=== PATIENT | female | born 1960 | race Caucasian/White ===

== ENCOUNTER 2018-07-09 10:36 | Day surgery (SDC) | payer OTHER ==
--- NOTE | 2018-07-09 09:04 | HP ---
DATE OF SURGERY: 07/09/2018 HISTORY OF PRESENT ILLNESS: The patient is a 57 year-old for a while has had increasingly symptomatic skin lesion bothering her vision on her bilateral eye lids. As it is increasingly symptomatic bothering her vision, I feel it is medically necessary for removal. PAST MEDICAL HISTORY: Anxiety, depression. PAST SURGICAL HISTORY: Tubal in the past. MEDICATIONS: Effexor. ALLERGIES: NKDA. FAMILY HISTORY: Negative in regards to this problem. SOCIAL HISTORY: Half pack per day smoker, denies alcohol abuse. REVIEW OF SYSTEMS: Twelve systems reviewed. No chest pain or palpitations other systems negative or noncontributory as above and per preadmission questionnaire. PHYSICAL EXAMINATION: GENERAL: No acute distress. HEENT: Sclerae nonicteric. As far as her eyelid, she had bilateral exophytic lesions on her eyelids in need of excision. NECK: No JVD. CHEST: Equal excursion, nonlabored breathing. No audible wheeze. CVS: Regular rate and rhythm. ABDOMEN: Soft. No peritoneal signs. EXTREMITIES: No significant edema. NEURO: Alert, oriented, moving extremities symmetrically. No gross motor deficits noted. IMPRESSION: Increasingly symptomatic bilateral eyelid symptomatic lesions in need of excision. I feel she is a candidate. Risks and benefits explained in detail including but not limited to bleeding or infection, risk of wound dehiscence, risk of eyelid dysfunction. The fact that what we excise likely will not recur but she could get similar lesions adjacent to or elsewhere on her body. She understands the remote risk of cornea irritation given the location, general risk of anesthesia, deep venous thrombosis, pulmonary embolism, pneumonia but not limited to. She understands all the above but not limited to, will proceed with excisional biopsy of bilateral symptomatic enlarging eye lid lesion.
[2018-07-09] MEDS ORDERED: DIPRIVAN 200 MG/20 ML IV ONE (10:37)
[2018-07-09] MEDS ORDERED: Decadron 4 MG INJ IV ONE (10:37)
[2018-07-09] MEDS ORDERED: SUBLIMAZE 100 MCG/2 ML IV ONE (10:37)
[2018-07-09] MEDS ORDERED: Zofran 4 MG/2 ML VIAL IV ONE (10:37)
[2018-07-09] MEDS ORDERED: TORAdol 30 mg Injection IV ONE (10:37)
[2018-07-09] MEDS ORDERED: Lactated Ringers 1,000 ML IV ONE (10:44)
[2018-07-09] MEDS ORDERED: Lactated Ringers 1,000 ML IV SCH (11:00)
[2018-07-09] MEDS ORDERED: KEFZOL 1 GM ONE (13:01)
[2018-07-09 14:50] VITALS: BP 152/99; PULSE 90; O2SAT 92
--- NOTE | 2018-07-09 15:31 | OP ---
SURGERY DATE/TIME: 07/09/2018 1252 PREOPERATIVE DIAGNOSIS: Enlarging symptomatic eyelid lesions interfering with vision. POSTOPERATIVE DIAGNOSIS: Enlarging symptomatic eyelid lesions interfering with vision. PROCEDURES: 1) Excisional biopsy of left eyelid exophytic lesions x3 ranging from 2 mm to 3.5 mm with closure of 6-0 Prolene. 2) Excisional biopsy of left face lesions just below the eye x2 ranging in size around 2 mm closed with 6-0 Prolene. 3) Excisional biopsy of right eyelid lesions x5 ranging in size from 1.5 mm to 3 mm with closure with 6-0 Prolene. SURGEON: Dr. Davion Lance. ANESTHESIA: General. ESTIMATED BLOOD LOSS: Minimal. INDICATIONS: As noted above. Risks and benefits explained in detail and not limited to and consent obtained. The site was confirmed. DESCRIPTION OF PROCEDURE AND FINDINGS: The patient is taken to the operating room. General anesthesia induced. Her face and eyelids periorbital area prepped and draped in usual sterile fashion. After official time out and no disagreement with planned procedure, starting with the first at the right side. There were four exophytic lesions on the upper eyelid area that were excised sharply with a scalpel and closed with 6-0 Prolene. There was one lesion on the lower eyelid that was closed with excised with excisional biopsy with scalpel and closed with 6-0 Prolene and passed off. These ranged in size from 1.5 mm to 3 mm in size. Attention is then turned to the left eyelid. There was three on the eyelid itself measuring in size from 1.5 mm to 2 mm up to the largest 3 mm exophytic right on the eyelid/eye lash juncture area. These were excised sharply with a scalpel and closed with 6-0 Prolene. Good hemostasis noted. There were two exophytic enlarging darker colored lesions on the left face just below the bottom edge of the eyelid. These were excised sharply with a scalpel and closed with 6-0 Prolene. Good hemostasis noted. The patient tolerated the procedure well. She was transferred to the recovery room in stable condition. Findings discussed with the family out in the waiting area.
== END 2018-07-09 14:40 | disposition home or self-care (01) ==
LOC: SDC 10:36
PROVIDERS: ATTEND Surgery
DX: H02.9 Unspecified disorder of eyelid (principal); L98.8 Other specified disorders of the skin and subcutaneous tissue; R20.8 Other disturbances of skin sensation
CPT/HCPCS: 94250; J0690; J1100; J1885; J2405; J2704; J3010

== ENCOUNTER 2020-04-28 08:55 | Emergency (ER) | payer OTHER ==
[2020-04-28] MEDS ORDERED: TORAdol 30 mg Injection IM ONE (09:15)
[2020-04-28] MEDS ORDERED: TORAdol 30 mg Injection ONE (09:44)
--- NOTE | 2020-04-28 09:46 | ERPHSYRPT ---
- History of Present Illness Time Seen by Provider: 04/28/20 09:00 Source: patient Exam Limitations: no limitations Patient Subjective Stated Complaint: cough and L rib pain Triage Nursing Assessment: pt to ED c/o cough x 3 days and L rib pain onset 0430 this am when pt hear pop during coughing fit. rates 8/10 sharp pain that is worse when coughing and changing postion. pt states dry hacking "smokers" cough. smokes 0.5 ppd reported. lungs clear and equal bilaterally. heart sounds clear, A&Ox4. Physician History: Patient is a 59-year-old female presents to our ED with complaint of left side rib pain. Patient is a smoker. She smokes half pack per day. Patient has had a dry cough for 3 days. Early this morning patient coughed and felt a pop followed by localized pain at her left rib. Pain described as an ache that is localized. Pain worse with palpation and movement. Pain improved with rest. No associated nausea vomiting or diaphoresis. No chest pain. symptoms are mild to moderate in intensity. Patient voices no other complaints at this time. Timing/Duration: today Severity: mild Modifying Factors: Improves With: immobilization, movement, rest Associated Symptoms: cough, No nausea, No vomiting, No shortness of breath, No diaphoresis, No chills, No fever, No headaches, No rash Allergies/Adverse Reactions: No Known Drug Allergies Allergy (Verified 04/28/20 09:14) Home Medications: Venlafaxine HCl [Effexor] 3 mg PO HS 06/25/18 [History] Ergocalciferol (Vitamin D2) [Vitamin D2] 1,250 mcg PO WEEKLY 04/28/20 [History] Gabapentin 600 mg PO TID 04/28/20 [History] Losartan Potassium 50 mg [Cozaar 50 MG] 50 mg PO DAILY 04/28/20 [History] Metoprolol Succinate 50 mg PO DAILY 04/28/20 [History] Pravastatin Sodium 40 mg PO DAILY 04/28/20 [History] Ropinirole HCl 1 mg PO DAILY 04/28/20 [History] Venlafaxine HCl 37.5 mg [Effexor 37.5 mg] 37.5 mg PO DAILY 04/28/20 [History] Venlafaxine HCl [Venlafaxine HCl ER] 225 mg PO DAILY 04/28/20 [History] hydroCHLOROthiazide [Hydrochlorothiazide] 25 mg PO DAILY 04/28/20 [History] Hx Tetanus, Diphtheria Vaccination/Date Given: Yes Hx Influenza Vaccination/Date Given: Yes Hx Pneumococcal Vaccination/Date Given: No Immunizations Up to Date: Yes Travel Risk - International Travel Have you traveled outside of the country in past 3 weeks: No - Coronavirus Screening Are you exhibiting any of the following symptoms?: Yes Symptoms: Cough: New Onset Close contact with a COVID-19 positive Pt in past 14-21 Days: No - Review of Systems Constitutional: No Symptoms, No Fever, No Chills Eyes: No Symptoms Ears, Nose, & Throat: No Symptoms Respiratory: No Symptoms, No Cough, No Dyspnea Cardiac: No Symptoms, No Chest Pain, No Edema, No Syncope Abdominal/Gastrointestinal: No Symptoms, No Abdominal Pain, No Nausea, No Vomiting, No Diarrhea Genitourinary Symptoms: No Symptoms, No Dysuria Musculoskeletal: No Symptoms, No Back Pain, No Neck Pain Skin: No Symptoms, No Rash Neurological: No Symptoms, No Dizziness, No Focal Weakness, No Sensory Changes Psychological: No Symptoms Endocrine: No Symptoms Hematologic/Lymphatic: No Symptoms Immunological/Allergic: No Symptoms All Other Systems: Reviewed and Negative - Past Medical History Pertinent Past Medical History: Yes Neurological History: Peripheral Neuropathy ENT History: No Pertinent History Cardiac History: High Cholesterol, Hypertension Respiratory History: No Pertinent History Endocrine Medical History: Hypothyroidism Musculoskeletal History: Arthritis GI Medical History: No Pertinent History History: No Pertinent History Psycho-Social History: Depression Female Reproductive Disorders: No Pertinent History Other Medical History: LEFT ANKLE FX 2013. SX HX - TUBAL 30 YEARS AGO, 2004 EMBOLIZATION OF UTERUS, CARPAL TUNNEL RELEASE RIGHT 2010 - Past Surgical History Past Surgical History: Yes Neuro Surgical History: No Pertinent History Cardiac: No Pertinent History Respiratory: No Pertinent History Gastrointestinal: No Pertinent History Genitourinary: No Pertinent History Musculoskeletal: No Pertinent History Female Surgical History: Tubal Ligation, Other Other Surgical History: uterine procedure to tx heavy periods - Social History Smoking Status: Current every day smoker How long have you smoked: 25yrs Exposure to second hand smoke: Yes Drug Use: none Patient Lives Alone: No - Female History Hx Now: No - Nursing Vital Signs Nursing Vital Signs: Initial Vital Signs Temperature 97.6 F 04/28/20 08:58 Pulse Rate 73 04/28/20 08:58 Respiratory Rate 16 04/28/20 08:58 Blood Pressure 151/83 04/28/20 08:58 O2 Sat by Pulse Oximetry 98 04/28/20 08:58 Pain Scale Pain Intensity 8 - Physical Exam General Appearance: no apparent distress, alert Eye Exam: PERRL/EOMI, eyes nml inspection Ears, Nose, Throat Exam: normal ENT inspection, TMs normal, pharynx normal, moist mucous membranes Neck Exam: normal inspection, non-tender, supple, full range of motion Respiratory Exam: normal breath sounds, lungs clear, No respiratory distress Cardiovascular Exam: regular rate/rhythm, normal heart sounds, normal peripheral pulses, other (Tenderness to palpation at left rib. Overlying soft tissue intact. No signs of trauma.) Gastrointestinal/Abdomen Exam: soft, normal bowel sounds, No tenderness, No mass Back Exam: normal inspection, normal range of motion, No CVA tenderness, No jaswant tebral tenderness Extremity Exam: normal inspection, normal range of motion, pelvis stable Neurologic Exam: alert, oriented x 3, cooperative, normal mood/affect, nml cerebellar function, nml station & gait, sensation nml, No motor deficits Skin Exam: normal color, warm, dry, No rash Lymphatic Exam: No adenopathy SpO2 Interpretation: normal SpO2: 98 O2 Delivery: Room Air - Course EKG Interpreted by Me: RATE (66), Sinus Rhythm, NORMAL AXIS, NORMAL INTERVALS - Radiology Exams Chest X-ray Interpretation: Teleradiologist Report (Airspace infiltrates or other acute cardiopulmonary disease is seen. There is no evidence of pneumothorax.) Ribs X-ray Interpretation: Teleradiologist Report (Nonspecific minimal deformity of the distal and of the left ninth rib without a definite radiolucent fracture. Imaging possibilities include an occult nondisplaced fracture or deformity due to old healed trauma. Correlate with point tenderness. The remainder of the left rib cage appears unremarka) Ordered Tests: Active Orders 24 hr Category Date Time Status EKG-ER Only STAT Care 04/28/20 09:15 Active CHEST 1 VIEW (PORTABLE) Stat Exams 04/28/20 09:11 Completed RIBS UNILATERAL Stat Exams 04/28/20 09:11 Completed Medication Summary Discontinued Medications Generic Name Dose Route Start Last Admin Trade Name Freq PRN Reason Stop Dose Admin Ketorolac Tromethamine 30 mg 04/28/20 09:15 04/28/20 09:45 Toradol 30 Mg Injection IM 04/28/20 09:16 30 mg STAT ONE Administration Ketorolac Tromethamine Confirm 04/28/20 09:44 Toradol 30 Mg Injection Administered 04/28/20 09:45 Dose 30 mg .ROUTE .STK-MED ONE - Progress Progress: improved Progress Note: 04/28/20 10:12 X-ray suggestive of possible rib fracture particularly at rib #9. The images not definitive for fracture however there is tenderness at this location would suggest possible fracture. Patient reassessed. Pain improved. Vitals stable. EKG within normal limits. Chest x-ray essentially nonremarkable. Will discharge patient home with pain medication. Patient agrees to follow-up with her primary care doctor within 48 hours for reevaluation. Counseled pt/family regarding: diagnosis, need for follow-up, rad results, smoking cessation - Departure Departure Disposition: Home Clinical Impression: Cough, Rib fracture Condition: Stable Critical Care Time: No Referrals: ABBY TSANG MD [Primary Care Provider] - Additional Instructions: Discharge/Care Plan VIRE,ELIZABETH DE LEON was seen on 04/28/20 in the Emergency Room. The patient was counseled regarding Diagnosis,Lab results, Imaging studies, need for follow up and when to return to the Emergency Room. Prescriptions given: Discharge Note I have spoken with the patient and/or caregivers. I have explained the patient's condition, diagnosis and treatment plan based on the information available to me at this time. I have answered the patient's and/or caregiver's questions and addressed any concerns. The patient and/or caregivers have as good understanding of the patient's diagnosis, condition and treatment plan as can be expected at this point. The vital signs have been stable. The patient's condition is stable and appropriate for discharge from the emergency department. The patient will pursue further outpatient evaluation with the primary care physician or other designated or consulting physician as outlined in the discharge instructions. The patient and/or caregivers are agreeable to this plan of care and follow-up instructions have been explained in detail. The patient and/or caregivers have received these instruction. The patient/and or caregivers are aware that any significant change in condition or worsening of symptoms should prompt an immediate return to this or the closest emergency department or call 911. Prescriptions: Ketorolac Tromethamine [Toradol] 10 mg PO TID 5 Days #15 tablet
--- NOTE | 2020-04-28 09:58 | XRAY ---
Exam: Upright PA chest film from 04/28/2020. Comparison: Two-view chest film series from 08/16/2014. Indication: Cough, left mid axillary rib pain. Findings: The heart size and contour are normal. The luana and mediastinal structures appear unremarkable. There is average inflation of the lungs. No air space infiltrates, vascular congestion, pneumothorax, or pleural fluid is seen. No gross acute osseous process is seen. Slight convexity of the thoracolumbar junction toward the left is seen. Impression: 1. No air space infiltrates or other acute cardiopulmonary disease is seen. There is no evidence of pneumothorax.
[2020-04-28 10:02] VITALS: BP 133/87; PULSE 66
--- NOTE | 2020-04-28 10:04 | XRAY ---
Exam: 4 view left rib series from 04/28/2020. Comparison: None. Indication: No known injury, complains of left mid axillary rib pain, cough. Findings: 2 AP images and both oblique images of the left rib cage were obtained. A definite radiolucent fracture line is not seen. However, there appears to be minimal deformity of the distal anterior end of the left ninth rib on the coned-down AP image and LPO image. This could be due to an occult fracture injury or old healed trauma. Correlate clinically with point tenderness. The remainder of the left rib cage reveals no acute fracture or other focal bone lesion. No pneumothorax or pleural effusion is seen. Impression: 1. Nonspecific minimal deformity of the distal end of the left ninth rib without a definite radiolucent fracture line. Imaging possibilities include an occult nondisplaced fracture or deformity due to old healed trauma. Correlate with point tenderness. 2. The remainder of the left rib cage appears unremarkable.
[2020-04-28 10:06] VITALS: O2SAT 98
== END 2020-04-28 10:36 | disposition home or self-care (01) ==
LOC: ED 08:55
DX: R05 Cough (principal); S22.39XA Fracture of one rib, unspecified side, initial encounter for closed fracture; S27.9XXA Injury of unspecified intrathoracic organ, initial encounter; X58.XXXA Exposure to other specified factors, initial encounter; Y93.9 Activity, unspecified; Y92.9 Unspecified place or not applicable; Z72.0 Tobacco use; I10 Essential (primary) hypertension
CPT/HCPCS: 71045; 71100; 93005; 96372; 99284; J1885

== ENCOUNTER 2020-05-16 07:57 | Emergency (ER) | payer OTHER ==
--- NOTE | 2020-05-16 08:54 | ERPHSYRPT ---
- History of Present Illness Time Seen by Provider: 05/16/20 08:51 Source: patient Patient Subjective Stated Complaint: pt here for pain to left lower back that radiates around to left rib area, she had fx left ribs 3 weeks ago, some nausea, no sob Triage Nursing Assessment: pt alert, walked in, gaurding back, resp easy, face mask in place Physician History: pt here for pain to left lower back that radiates around to left rib area, she had fx left ribs 3 weeks ago, some nausea, Timing/Duration: week(s) Severity: moderate Modifying Factors: Improves With: acetaminophen Associated Symptoms: nausea, No vomiting, No abdominal pain, No shortness of breath, No heartburn, No diaphoresis, No cough, No chills, No chest pain, No fever, No headaches Allergies/Adverse Reactions: No Known Drug Allergies Allergy (Verified 05/16/20 08:32) Home Medications: Venlafaxine HCl [Effexor] 3 mg PO HS 06/25/18 [History] Ergocalciferol (Vitamin D2) [Vitamin D2] 1,250 mcg PO WEEKLY 04/28/20 [History] Gabapentin 600 mg PO TID 04/28/20 [History] Losartan Potassium 50 mg [Cozaar 50 MG] 50 mg PO DAILY 04/28/20 [History] Metoprolol Succinate 50 mg PO DAILY 04/28/20 [History] Pravastatin Sodium 40 mg PO DAILY 04/28/20 [History] Ropinirole HCl 1 mg PO DAILY 04/28/20 [History] Venlafaxine HCl 37.5 mg [Effexor 37.5 mg] 37.5 mg PO DAILY 04/28/20 [History] Venlafaxine HCl [Venlafaxine HCl ER] 225 mg PO DAILY 04/28/20 [History] hydroCHLOROthiazide [Hydrochlorothiazide] 25 mg PO DAILY 04/28/20 [History] Hx Tetanus, Diphtheria Vaccination/Date Given: Yes Hx Influenza Vaccination/Date Given: No Hx Pneumococcal Vaccination/Date Given: No Immunizations Up to Date: Yes Travel Risk - International Travel Have you traveled outside of the country in past 3 weeks: No - Coronavirus Screening Are you exhibiting any of the following symptoms?: No Close contact with a COVID-19 positive Pt in past 14-21 Days: No - Review of Systems Constitutional: No Fever, No Chills Eyes: No Symptoms Ears, Nose, & Throat: No Symptoms Respiratory: Other (left chestwall pain), No Cough, No Dyspnea Cardiac: No Chest Pain, No Edema, No Syncope Abdominal/Gastrointestinal: No Abdominal Pain, No Nausea, No Vomiting, No Diarrhea Genitourinary Symptoms: No Dysuria Musculoskeletal: No Back Pain, No Neck Pain Skin: No Rash Neurological: No Dizziness, No Focal Weakness, No Sensory Changes Psychological: No Symptoms Endocrine: No Symptoms All Other Systems: Reviewed and Negative - Past Medical History Pertinent Past Medical History: Yes Neurological History: Peripheral Neuropathy ENT History: No Pertinent History Cardiac History: High Cholesterol, Hypertension Respiratory History: No Pertinent History Endocrine Medical History: Hypothyroidism Musculoskeletal History: Arthritis GI Medical History: No Pertinent History History: No Pertinent History Psycho-Social History: Depression Female Reproductive Disorders: No Pertinent History Other Medical History: LEFT ANKLE FX 2013. SX HX - TUBAL 30 YEARS AGO, 2004 EMBOLIZATION OF UTERUS, CARPAL TUNNEL RELEASE RIGHT 2011 - Past Surgical History Past Surgical History: Yes Neuro Surgical History: No Pertinent History Cardiac: No Pertinent History Respiratory: No Pertinent History Gastrointestinal: No Pertinent History Genitourinary: No Pertinent History Musculoskeletal: No Pertinent History Female Surgical History: Tubal Ligation, Other Other Surgical History: uterine procedure to tx heavy periods - Social History Smoking Status: Current every day smoker How long have you smoked: 25yrs Exposure to second hand smoke: Yes Drug Use: none Patient Lives Alone: No - Female History Hx Last Menstrual Period: post Hx Now: No - Nursing Vital Signs Nursing Vital Signs: Initial Vital Signs Temperature 96.8 F 05/16/20 08:18 Pulse Rate 102 H 05/16/20 08:18 Respiratory Rate 22 05/16/20 08:18 Blood Pressure 158/107 05/16/20 08:18 O2 Sat by Pulse Oximetry 99 05/16/20 08:18 Pain Scale Pain Intensity 8 - Physical Exam General Appearance: no apparent distress, alert Eye Exam: PERRL/EOMI, eyes nml inspection Ears, Nose, Throat Exam: normal ENT inspection, TMs normal, pharynx normal, moist mucous membranes Neck Exam: normal inspection, non-tender, supple, full range of motion Respiratory Exam: diminished breath sounds, No respiratory distress Cardiovascular Exam: regular rate/rhythm, normal heart sounds, normal peripheral pulses Gastrointestinal/Abdomen Exam: soft, normal bowel sounds, No tenderness, No mass Back Exam: normal inspection, normal range of motion, No CVA tenderness, No vertebral tenderness Extremity Exam: normal inspection, normal range of motion, pelvis stable Neurologic Exam: alert, oriented x 3, cooperative, normal mood/affect, nml cerebellar function, nml station & gait, sensation nml, No motor deficits Skin Exam: normal color, warm, dry, No rash Lymphatic Exam: No adenopathy SpO2: 99 - Course Nursing assessment & vital signs reviewed: Yes - Radiology Exams Chest X-ray Interpretation: Reviewed by me, No Pneumonia, Non-displaced Fracture (left rib) Ordered Tests: Active Orders 24 hr Category Date Time Status CHEST 2 VIEWS (PA AND LAT) Stat Exams 05/16/20 08:47 Taken Medication Summary Generic Name Dose Route Start Last Admin Trade Name Freq PRN Reason Stop Dose Admin Lidocaine 2 patch 05/16/20 09:18 Lidoderm Patch 5% TOP 05/16/20 09:19 UD STA - Progress Progress: improved, pain not gone completely Counseled pt/family regarding: diagnosis, need for follow-up, rad results - Departure Departure Disposition: Home Clinical Impression: Left-sided chest wall pain Rib fracture Qualifiers: Encounter type: sequela Rib fracture type: single rib Fracture type: closed Laterality: left Qualified Code(s): S22.32XS - Fracture of one rib, left side, sequela Condition: Stable Critical Care Time: No Referrals: ABBY TSAGN MD [Primary Care Provider] - Instructions: Rib Fracture (DC) Additional Instructions: Discharge/Care Plan MATEUSZELIZABETH was seen on 05/16/20 in the Emergency Room. The patient was counseled regarding Diagnosis,Lab results, Imaging studies, need for follow up and when to return to the Emergency Room. Prescriptions given: Discharge Note I have spoken with the patient and/or caregivers. I have explained the patient's condition, diagnosis and treatment plan based on the information available to me at this time. I have answered the patient's and/or caregiver's questions and addressed any concerns. The patient and/or caregivers have as good understanding of the patient's diagnosis, condition and treatment plan as can be expected at this point. The vital signs have been stable. The patient's condition is stable and appropriate for discharge from the emergency department. The patient will pursue further outpatient evaluation with the primary care physician or other designated or consulting physician as outlined in the discharge instructions. The patient and/or caregivers are agreeable to this plan of care and follow-up instructions have been explained in detail. The patient and/or caregivers have received these instruction. The patient/and or caregivers are aware that any significant change in condition or worsening of symptoms should prompt an immediate return to this or the closest emergency department or call 911. VIREELIZABETH was seen on 05/16/20 n the Emergency Room. At that time you were treated for an emergent condition, during your visit Laboratory, Radiology and/or other procedures may have been ordered. It is very important that you follow-up with your Primary Care Physician ABBY TSANG within the next 24- 48 hours to review your Emergency Room visit and the final results of testing that was ordered. Some test results such as Urine Cultures, Blood Cultures, and other cultures if ordered will not be finalized for 24-48 hours. If you do not have a Primary Care Provider please call the medical records department at [phone] ext [phone] to obtain a copy of your results or you may sign into our patient portal to obtain these results by visiting us @ [email or web address] and completing the following steps: 1. Click on the Patient Portal link 2. Click the Patient Self Enrollment Link to complete the enrollment form and entering your 3. Once the enrollment form is completed you will receive an email with a temporary ID and password at the email address you provided. 4. Next choose a user name and password. Your user name must be at least 4 characters long and your password must be at least 4 characters long. 5. Choose a security question from the list and provide your answer to the question. If you already have signed into the Health Portal you may access your Health Care Information 06/03 by the following steps: 1. Login to our website @ [email or web address] 2. Enter your original user name and password. FAQS The [facility] Health Portal is an online tool that contains your Lab Results, Radiology Reports, Visit History, Discharge Instructions and Health Summary Lab and Radiology Results will not be available for 72 hours on the portal. The Portal is a secure site, passwords are encryted and URLs are re-written so they cannot be copied and pasted. You and authorized family members are the only ones who can access your Portal. Also there is a timeout feature that protects your information if you leave the Portal page open. If you have technical difficulty please use the Contact Us link on the page this will allow you to submit any questions you have regarding the Portal or you may contact the Medical Record Department at [phone] ext [phone]. Prescriptions: Lidocaine HCl 5% Patch [Lidoderm Patch 5%] 2 patch TOP DAILY #30 patch
[2020-05-16 09:08] VITALS: BP 140/88; PULSE 90
[2020-05-16] MEDS ORDERED: Lidoderm Patch 5% TOP STA (09:18)
[2020-05-16 09:22] VITALS: O2SAT 99
[2020-05-16] MEDS ORDERED: Lidoderm Patch 5% ONE (09:37)
--- NOTE | 2020-05-16 18:19 | XRAY ---
Indication: Chest wall pain. History rib fractures. Comparison: April 28, 2020. PA/lateral chest demonstrates new nondisplaced left lateral 8/9 rib fractures with tiny hemothorax. Remaining heart and lungs unremarkable.
== END 2020-05-16 09:50 | disposition home or self-care (01) ==
LOC: ED 07:57
DX: R07.89 Other chest pain (principal); S22.32XS Fracture of one rib, left side, sequela; I10 Essential (primary) hypertension; E03.9 Hypothyroidism, unspecified; M54.5 Low back pain; Z79.899 Other long term (current) drug therapy
CPT/HCPCS: 71046; 99283; A9270-GY